=== PATIENT | male | born 1965 | race African-American/Black ===

== ENCOUNTER 2016-11-26 15:03 | Emergency (ER) | payer SELFPAY ==
[~2016-11-26] VITALS: Ht 180.3 cm; Wt 82.6 kg
[~2016-11-26 15:03] MED LIST: CYCLOBENZAPRINE10 MG ORAL; NAPROSYN500 M1 ORAL; NKM; NORCO 10/3251 EA ORAL; NORCO 5-325 TA1 EAC1 ORAL; NORCO 5-325 TA1 EACH ORAL; PEPCID40 MG PO; PRILOSEC20 MG ORAL; PROTONIX40 MG ORAL; ZOFRAN4 MG ORAL; ZOLOFT25 MG ORAL
[2016-11-26 15:18] VITALS: BP 139/82
[2016-11-26] MEDS ORDERED: DuoNeb 0.5-3(2.5)mg/3ml neb HHN ONE (15:45)
[2016-11-26] MEDS ORDERED: Famotidine 20 MG/ 2ML VIAL IVP ONE (15:45)
--- NOTE | 2016-11-26 16:22 | Emergency Room Report ---
History of Present Illness General Chief Complaint: Abdominal Pain Source: Patient Present Illness HPI Patient is a 51-year-old male who presented after increased epigastric burning sensation. Patient gradual onset of symptoms. Patient states he's had previous similar symptoms in the past. The patient denies any hematemesis or bloody stools. Patient denied prior abdominal surgery. Patient stated the pain had been present for several days.The patient is reportedly a smoker.Patient denies any alcohol or NSAID use.The patient states he had prior history of colitis. Allergies: Coded Allergies: No Known Allergies (Unverified , 11/28/13) Patient History Past Medical History: see triage record Reviewed Nursing Documentation: PMH: Agreed, PSxH: Agreed Nursing Documentation-PMH Hx Cancer: No Hx Gastrointestinal Problems: Yes Hx Neurological Problems: Yes - Back surgery 1995, Sciatica Review of Systems All Other Systems: negative except mentioned in HPI Physical Exam Vital Signs Date Time Temp Pulse Resp B/P Pulse Ox O2 Delivery O2 Flow Rate FiO2 11/26/16 15:09 97.9 132 16 139/82 97 Room Air Sp02 EP Interpretation: reviewed, normal General Appearance: normal inspection, well appearing, no apparent distress, alert, GCS 15 Head: atraumatic ENT: normal ENT inspection, hearing grossly normal, normal voice Neck: normal inspection, full range of motion, supple, no bony tend Respiratory: normal inspection, normal breath sounds, no respiratory distress, no retraction, wheezing Cardiovascular #1: regular rate, rhythm, no edema Gastrointestinal: normal inspection, normal bowel sounds, non tender, soft, no guarding, no hernia Genitourinary: no CVA tenderness Musculoskeletal: normal inspection, back normal, normal range of motion Neurologic: normal inspection, alert, oriented x3, responsive, 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 Differential diagnoses included ischemic bowel, appendicitis, perforated viscus, abdominal aortic aneurysm, inferior myocardial infarction, viral gastroenteritis Because of complexity of patient's case laboratory testing and imaging studies were ordered.The patient's prior records were reviewed the patient was noted to have prior history of a duodenal ulcer as well as a hiatal hernia. The patient was given oral pain medication and acid blockers.Patient is advised to seek primary care physician. He is advised to follow up for recheck in the next few days with the [facility]. Patient is advised to return if any worsening condition or if any changes in status that are concerning. Labs Test 11/26/16 15:50 11/26/16 16:47 White Blood Count 8.6 K/UL (4.8-10.8) Red Blood Count 4.53 M/UL (4.70-6.10) Hemoglobin 14.2 G/DL (14.2-18.0) Hematocrit 42.3 % (42.0-52.0) Mean Corpuscular Volume 93 FL (80-99) Mean Corpuscular Hemoglobin 31.3 PG (27.0-31.0) Mean Corpuscular Hemoglobin Concent 33.5 G/DL (32.0-36.0) Red Cell Distribution Width 11.9 % (11.6-14.8) Platelet Count 345 K/UL (150-450) Mean Platelet Volume 6.0 FL (6.5-10.1) Neutrophils (%) (Auto) 48.3 % (45.0-75.0) Lymphocytes (%) (Auto) 43.4 % (20.0-45.0) Monocytes (%) (Auto) 4.5 % (1.0-10.0) Eosinophils (%) (Auto) 2.1 % (0.0-3.0) Basophils (%) (Auto) 1.7 % (0.0-2.0) Sodium Level 138 mEQ/L (135-145) Potassium Level 4.0 mEQ/L (3.4-4.9) Chloride Level 95 mEQ/L (98-107) Carbon Dioxide Level 25 mEQ/L (20-30) Anion Gap 18 (5-15) Blood Urea Nitrogen 18 mg/dL (7-23) Creatinine 1.4 mg/dL (0.7-1.2) Estimat Glomerular Filtration Rate > 60 mL/min (>60) Glucose Level 167 mg/dL (74-106) Calcium Level 9.6 mg/dL (8.6-10.2) Total Bilirubin 0.3 mg/dL (0.0-1.2) Aspartate Amino Transf (AST/SGOT) 20 U/L (5-40) Alanine Aminotransferase (ALT/SGPT) 22 U/L (3-41) Alkaline Phosphatase 91 U/L (40-129) Troponin I < 0.30 ng/mL (<=0.30) Total Protein 7.6 g/dL (6.6-8.7) Albumin 4.5 g/dL (3.5-5.2) Globulin 3.1 g/dL Albumin/Globulin Ratio 1.4 (1.0-2.7) Lipase 20 U/L (< 60) Urine Color Pale yellow Urine Appearance Clear Urine pH 6 (4.5-8.0) Urine Specific Simms 1.015 (1.005-1.035) Urine Protein Negative (NEGATIVE) Urine Glucose (UA) Negative (NEGATIVE) Urine Ketones Negative (NEGATIVE) Urine Occult Blood Negative (NEGATIVE) Urine Nitrite Negative (NEGATIVE) Urine Bilirubin Negative (NEGATIVE) Urine Urobilinogen Normal MG/DL (0.0-1.0) Urine Leukocyte Esterase Negative (NEGATIVE) EKG Diagnostic Results Rate: normal - 98 Rhythm: NSR ST Segments: no acute changes ASA given to the pt in ED: No Rhythm Strip Diag. Results EP Interpretation: yes Rhythm: NSR - 93, no PVC's, no ectopy Chest X-Ray Diagnostic Results EP Interpretation: Yes Findings: no consolidation, no effusion, no pneumothorax, no acute cardiopulmonary disease Number of Views: 1 Last Vital Signs Date Time Temp Pulse Resp B/P Pulse Ox O2 Delivery O2 Flow Rate FiO2 11/26/16 16:13 90 14 100 Room Air 11/26/16 15:18 97.9 139/82 Status: improved Disposition: HOME, SELF-CARE Condition: Stable Scripts Omeprazole Magnesium (PRILOSEC OTC) 20 Mg Tablet.dr 20 MG ORAL DAILY, #30 TAB Prov: Chris Croft 11/26/16 Hydrocodone Bit/Acetaminophen 5-325* (NORCO 5-325*) 1 Each Tablet 1 TAB ORAL Q6H Y for For Pain, #10 TAB 0 Refills Prov: Chris Croft 11/26/16 Chris Croft Nov 26, 2016 16:21
[2016-11-26] MEDS ORDERED: NORCO 5-325 TA1 EACH ORAL (16:39)
[2016-11-26] MEDS ORDERED: PRILOSEC OTC20 MG ORAL (16:39)
[2016-11-26 16:41] LABS: BASOPHILS % (AUTO) 1.7 % (0.0-2.0); EOSINOPHILS % (AUTO) 2.1 % (0.0-3.0); LYMPHOCYTES % (AUTO) 43.4 % (20.0-45.0); MEAN CORPUSCULAR HEMOGLOBIN 31.3 PG (27.0-31.0); MEAN CORPUSCULAR HGB CONC 33.5 G/DL (32.0-36.0); MEAN CORPUSCULAR VOLUME 93 FL (80-99); MONOCYTES % (AUTO) 4.5 % (1.0-10.0); NEUTROPHILS % (AUTO) 48.3 % (45.0-75.0); PLATELET COUNT 345 K/UL (150-450); RED BLOOD COUNT 4.53 M/UL (4.70-6.10); RED CELL DISTRIBUTION WIDTH 11.9 % (11.6-14.8); TROPONIN I < 0.30 ng/mL (<=0.30); WHITE BLOOD COUNT 8.6 K/UL (4.8-10.8)
[2016-11-26 16:45] LABS: ALANINE AMINOTRANSFERASE 22 U/L (3-41); ALBUMIN/GLOBULIN RATIO 1.4 (1.0-2.7); ANION GAP 18 (5-15); ASPARTATE AMINO TRANSFERASE 20 U/L (5-40); CALCIUM 9.6 mg/dL (8.6-10.2); CARBON DIOXIDE 25 mEQ/L (20-30); CHLORIDE 95 mEQ/L (98-107); CREATININE 1.4 mg/dL (0.7-1.2); GLOMERULAR FILTRATION RATE > 60 mL/min (>60); HEMOLYSIS 7; LIPASE 20 U/L (< 60); SODIUM 138 mEQ/L (135-145); TOTAL PROTEIN 7.6 g/dL (6.6-8.7)
[2016-11-26 17:00] LABS: APPEARANCE,URINE CLEAR; KETONES,URINE NEGATIVE (NEGATIVE); LEUKOCYTE ESTERASE ,URINE NEGATIVE (NEGATIVE); NITRITE,URINE NEGATIVE (NEGATIVE); PH,URINE 6 (4.5-8.0); PROTEIN,URINE NEGATIVE (NEGATIVE); UROBILINOGEN,URINE NORMAL MG/DL (0.0-1.0)
[2016-11-26 17:02] VITALS: BP 141/80
[2016-11-26 17:20] VITALS: BP 141/80
--- NOTE | 2016-11-28 09:34 | Diagnostic Imaging Report ---
Indication: Shortness of breath Technique: XRAY CHEST 1 V Comparison: 02/26/08 Findings: Cardiomediastinal silhouette is within normal limits. Mild linear lung base atelectasis is noted. There is no consolidation or pleural effusion. Osseous structures demonstrate no acute abnormality. Impression: Mild linear lung base atelectasis. Clinical correlation/followup recommended.
--- NOTE | 2016-12-02 16:38 | Cardiology Report ---
APPROVED REPORT EKG Measurement Heart [id number] Normal sinus rhythm Normal ECG
== END 2016-11-26 17:21 | disposition home or self-care (01) ==
LOC: EMR 16:23
DX: K27.9 Peptic ulcer, site unspecified, unspecified as acute or chronic, without hemorrhage or perforation (principal); F17.200 Nicotine dependence, unspecified, uncomplicated
CPT/HCPCS: 36415; 71010; 80053; 81003; 83690; 84484; 85025; 93005; 94640; 94664; 96360; 96374; 96375; 99284; J2405; J7040; S0028; J7620

== ENCOUNTER 2017-01-14 11:49 | Emergency (ER) | payer MEDICAID ==
[~2017-01-14] VITALS: Ht 180.3 cm; Wt 79.4 kg
[~2017-01-14 11:49] MED LIST changes: +PRILOSEC OTC20 MG ORAL
[2017-01-14] MEDS ORDERED: Morphine Sulfate 4mg/ml Inj IVP ONE (12:15)
--- NOTE | 2017-01-14 12:16 | Emergency Room Report ---
History of Present Illness General Chief Complaint: Abdominal Pain Source: Patient Present Illness HPI Patient just with complaints of epigastric pain sharp and burning in nature Denies any radiation to the right or left upper quadrant denies any back pain denies any lower abdominal pain Patient is somewhat difficult to obtain history Appears agitated Reports that it "just hurts" There was no other medication prior to presentation Patient did not provide any further history however reviewing medical records patient was here approximately 6 weeks ago with very similar presentation With fairly extensive workup and imaging Denies any diarrhea denies any fevers or chills denies any trauma Allergies: Coded Allergies: No Known Allergies (Unverified , 11/28/13) Patient History Past Medical History: see triage record Pertinent Family History: none Reviewed Nursing Documentation: PMH: Agreed, PSxH: Agreed Nursing Documentation-PMH Past Medical History: No History, Except For Hx Cancer: No Hx Gastrointestinal Problems: Yes Hx Neurological Problems: Yes - Back surgery 1995, Sciatica Review of Systems All Other Systems: negative except mentioned in HPI Physical Exam Vital Signs Date Time Temp Pulse Resp B/P Pulse Ox O2 Delivery O2 Flow Rate FiO2 01/14/17 12:00 97.3 92 22 136/100 98 Room Air Sp02 EP Interpretation: reviewed, normal General Appearance: mild distress - Appears in acute pain Head: normocephalic, atraumatic Eyes: bilateral eye EOMI, bilateral eye PERRL ENT: hearing grossly normal, normal pharynx, TMs + canals normal, uvula midline Neck: full range of motion, supple, no meningismus, no bony tend Respiratory: lungs clear, normal breath sounds, no rhonchi, no respiratory distress, no retraction, no accessory muscle use Cardiovascular #1: normal peripheral pulses, regular rate, rhythm, no edema, no gallop, no JVD, no murmur Gastrointestinal: normal bowel sounds, non tender - However subjectively pointing to the epigastric region, soft, no mass, no organomegaly, non-distended , no guarding, no hernia, no pulsatile mass, no rebound Musculoskeletal: normal inspection Neurologic: oriented x3, responsive, caser shoe parts III-XII nml as tested, motor strength/ tone normal, sensory intact Psychiatric: mood/affect normal Skin: normal color, no rash, warm/dry, palpation normal Lymphatic: normal inspection, no adenopathy Medical Decision Making Diagnostic Impression: Primary Impression: Abdominal pain ER Course With the history exam and presentation, multiple differentials considered, including but not limited to appendicitis, gastritis, cholecystitis, diverticulitis Patient has had previous imaging and evaluation Therefore repeat imaging was not performed there is evidence on previous evaluation of duodenal irritation, Patient resting comfortably blood work was baseline levels at this time Patient was given pain medication At this time on disposition as the patient was given prescriptions for antacid he reports that he has no money to get the medications Patient is also found positive on multiple drug screen results. I did refer him to the [facility], along with low cost clinics and encouraged him to followup closely Labs Test 01/14/17 12:30 01/14/17 14:00 White Blood Count 8.3 K/UL (4.8-10.8) Red Blood Count 4.61 M/UL (4.70-6.10) Hemoglobin 14.3 G/DL (14.2-18.0) Hematocrit 43.6 % (42.0-52.0) Mean Corpuscular Volume 94 FL (80-99) Mean Corpuscular Hemoglobin 31.0 PG (27.0-31.0) Mean Corpuscular Hemoglobin Concent 32.8 G/DL (32.0-36.0) Red Cell Distribution Width 12.2 % (11.6-14.8) Platelet Count 448 K/UL (150-450) Mean Platelet Volume 5.5 FL (6.5-10.1) Neutrophils (%) (Auto) 62.6 % (45.0-75.0) Lymphocytes (%) (Auto) 31.0 % (20.0-45.0) Monocytes (%) (Auto) 3.8 % (1.0-10.0) Eosinophils (%) (Auto) 1.4 % (0.0-3.0) Basophils (%) (Auto) 1.2 % (0.0-2.0) Sodium Level 140 mEQ/L (135-145) Potassium Level 4.1 mEQ/L (3.4-4.9) Chloride Level 97 mEQ/L (98-107) Carbon Dioxide Level 30 mEQ/L (20-30) Anion Gap 13 (5-15) Blood Urea Nitrogen 9 mg/dL (7-23) Creatinine 1.1 mg/dL (0.7-1.2) Estimat Glomerular Filtration Rate > 60 mL/min (>60) Glucose Level 111 mg/dL (74-106) Calcium Level 10.2 mg/dL (8.6-10.2) Total Bilirubin 0.2 mg/dL (0.0-1.2) Aspartate Amino Transf (AST/SGOT) 17 U/L (5-40) Alanine Aminotransferase (ALT/SGPT) 20 U/L (3-41) Alkaline Phosphatase 96 U/L (40-129) Total Protein 7.5 g/dL (6.6-8.7) Albumin 4.3 g/dL (3.5-5.2) Globulin 3.2 g/dL Albumin/Globulin Ratio 1.3 (1.0-2.7) Lipase 16 U/L (< 60) Urine Opiates Screen Positive (NEGATIVE) Urine Barbiturates Screen Negative (NEGATIVE) Phencyclidine (PCP) Screen Negative (NEGATIVE) Urine Amphetamines Screen Positive (NEGATIVE) Urine Benzodiazepines Screen Negative (NEGATIVE) Urine Cocaine Screen Negative (NEGATIVE) Urine Marijuana (THC) Screen Positive (NEGATIVE) Last Vital Signs Date Time Temp Pulse Resp B/P Pulse Ox O2 Delivery O2 Flow Rate FiO2 01/14/17 12:00 97.3 92 22 136/100 98 Room Air Status: improved Disposition: HOME, SELF-CARE Condition: Improved Scripts Ondansetron Odt* (ZOFRAN ODT*) 4 Mg Tab.rapdis 4 MG ORAL Q6H Y for Nausea & Vomiting, #15 TAB 0 Refills Prov: ELI ALMANZAR D.O. 01/14/17 Famotidine (PEPCID) 40 Mg Tablet 40 MG PO DAILY, #14 TAB 0 Refills Prov: ELI ALMANZAR D.O. 01/14/17 Additional Instructions: Patient is provided with the discharge instructions notified to follow up with primary doctor in the next 2-3 days otherwise return to the er with any worsening symptoms. Please note that this report is being documented using [employer] technology. This can lead to erroneous entry secondary to incorrect interpretation by the dictating instrument. ELI ALMANZAR D.O. Jan 14, 2017 12:16
[2017-01-14 13:08] VITALS: BP 137/90
[2017-01-14 13:21] LABS: BASOPHILS % (AUTO) 1.2 % (0.0-2.0); EOSINOPHILS % (AUTO) 1.4 % (0.0-3.0); MEAN CORPUSCULAR HGB CONC 32.8 G/DL (32.0-36.0); MEAN CORPUSCULAR VOLUME 94 FL (80-99); MEAN PLATELET VOLUME 5.5 FL (6.5-10.1); MONOCYTES % (AUTO) 3.8 % (1.0-10.0); NEUTROPHILS % (AUTO) 62.6 % (45.0-75.0); PLATELET COUNT 448 K/UL (150-450); RED BLOOD COUNT 4.61 M/UL (4.70-6.10); RED CELL DISTRIBUTION WIDTH 12.2 % (11.6-14.8); WHITE BLOOD COUNT 8.3 K/UL (4.8-10.8)
[2017-01-14 13:41] LABS: ALANINE AMINOTRANSFERASE 20 U/L (3-41); ALBUMIN/GLOBULIN RATIO 1.3 (1.0-2.7); ANION GAP 13 (5-15); ASPARTATE AMINO TRANSFERASE 17 U/L (5-40); CALCIUM 10.2 mg/dL (8.6-10.2); CARBON DIOXIDE 30 mEQ/L (20-30); CHLORIDE 97 mEQ/L (98-107); CREATININE 1.1 mg/dL (0.7-1.2); GLOMERULAR FILTRATION RATE > 60 mL/min (>60); HEMOLYSIS 6; LIPASE 16 U/L (< 60); POTASSIUM 4.1 mEQ/L (3.4-4.9); SODIUM 140 mEQ/L (135-145); TOTAL PROTEIN 7.5 g/dL (6.6-8.7)
[2017-01-14] MEDS ORDERED: PEPCID40 MG PO (13:47)
[2017-01-14] MEDS ORDERED: ZOFRAN ODT4 MG ORAL (13:47)
[2017-01-14 14:17] VITALS: BP 147/82
[2017-01-14 14:18] VITALS: BP 147/82
== END 2017-01-14 14:20 | disposition home or self-care (01) ==
LOC: EMR 12:38
DX: R10.9 Unspecified abdominal pain (principal); Z87.19 Personal history of other diseases of the digestive system
CPT/HCPCS: 36415; 80053; 80300; 83690; 85025; 96374; 96375; 99284; J2270; J2405

== ENCOUNTER 2017-03-27 15:36 | Emergency (ER) | payer MEDICAID ==
[~2017-03-27] VITALS: Ht 180.3 cm; Wt 69.9 kg
[~2017-03-27 15:36] MED LIST changes: +ZOFRAN ODT4 MG ORAL
--- NOTE | 2017-03-27 15:54 | Emergency Room Report ---
History of Present Illness General Chief Complaint: Chest Pain Source: Patient Present Illness HPI 51YOM walk-in with 1 week of SOB and dry cough. Associated with chest pressure. + smoker, MJ. Denies fever/chills, abd pain, urinary complaints, headache, Denies cocaine use Denies history of DM, HTN, HLD, CAD, sudden family Allergies: Coded Allergies: No Known Allergies (Unverified , 11/28/13) Patient History Past Medical History: none Past Surgical History: none Pertinent Family History: none Social History: Reports: drug use, smoking Immunizations: UTD Reviewed Nursing Documentation: PMH: Agreed, PSxH: Agreed Nursing Documentation-PMH Hx Cancer: No Hx Gastrointestinal Problems: Yes Hx Neurological Problems: Yes - Back surgery 1995, Sciatica Review of Systems All Other Systems: negative except mentioned in HPI Physical Exam Vital Signs Date Time Temp Pulse Resp B/P Pulse Ox O2 Delivery O2 Flow Rate FiO2 03/27/17 15:39 97.5 85 14 148/88 99 Room Air Sp02 EP Interpretation: reviewed, normal General Appearance: normal inspection, well appearing, no apparent distress, alert, GCS 15, non-toxic, other - Observed resting comfortably in stretcher; when I enter room, starts hyperventilating Head: normocephalic, atraumatic Eyes: bilateral eye EOMI, bilateral eye PERRL ENT: normal ENT inspection, hearing grossly normal, normal voice Neck: normal inspection, full range of motion, supple, no bony tend Respiratory: normal inspection, lungs clear, normal breath sounds, no respiratory distress, no retraction, no accessory muscle use, no wheezing, speaking full sentences Cardiovascular #1: regular rate, rhythm, no edema Gastrointestinal: normal inspection, normal bowel sounds, non tender, soft, no guarding, no hernia Genitourinary: no CVA tenderness Musculoskeletal: normal inspection, back normal, normal range of motion, Yara' s Sign negative Neurologic: normal inspection, alert, oriented x3, responsive, heater furnace III-XII nml as tested, motor strength/tone normal, speech normal Psychiatric: normal inspection, judgement/insight normal, mood/affect normal Skin: normal inspection, normal color, no rash Medical Decision Making Diagnostic Impression: Primary Impression: Dyspnea Qualified Codes: R06.00 - Dyspnea, unspecified ER Course Dyspnea for 1 week - VSS. Afebrile. No hypoxia. - has been here multiple times recently with negative lab/imaging workup. Utox positive for multiple illicit substances. No cocaine use. - ECG here NSR, no ischemia. - 1albuterol given with improvement in subjective dyspnea - Low suspicion for ACS given duration of symptoms, no CAD risk factors, no cocaine use, observed malingering - Low suspicion for PE given no hypoxia/tachycardia/tachypnea, no leg pain/ swelling. PERC negative essentially except for age >50. DC home with Rx ventolin Advised to STOP smoking Close PMD followup in 2-3 days EKG Diagnostic Results Rate: normal Rhythm: NSR ST Segments: no acute changes ASA given to the pt in ED: No Last Vital Signs Date Time Temp Pulse Resp B/P Pulse Ox O2 Delivery O2 Flow Rate FiO2 03/27/17 15:50 85 14 Room Air 03/27/17 15:39 97.5 148/88 99 Status: improved Disposition: HOME, SELF-CARE Scripts Albuterol Sulfate (VENTOLIN HFA) 18 Gm Hfa.aer.ad 1 PUFF INH EVERY 6 HOURS for SOB, chest tightness for 7 Days, #18 GM 0 Refills Prov: ANNE ESPOSITO M.D. 03/27/17 ANNE ESPOSITO M.D. Mar 27, 2017 15:54
[2017-03-27 16:11] VITALS: BP 140/88
[2017-03-27] MEDS ORDERED: Albuterol ud Inhalation HHN ONE (16:15)
[2017-03-27] MEDS ORDERED: VENTOLIN HFA18 GM INH (16:34)
[2017-03-27 16:55] VITALS: BP 134/75
== END 2017-03-27 16:45 | disposition home or self-care (01) ==
LOC: EMR 16:30
DX: R06.00 Dyspnea, unspecified (principal); F17.200 Nicotine dependence, unspecified, uncomplicated
CPT/HCPCS: 93005; 94640; 94664; 99283

== ENCOUNTER 2018-10-18 11:34 | Emergency (ER) | payer MEDICAID ==
[~2018-10-18] VITALS: Ht 180.3 cm; Wt 86.2 kg
[~2018-10-18 11:34] MED LIST changes: +VENTOLIN HFA18 GM INH
--- NOTE | 2018-10-18 11:45 | NUR ---
ED Nurse Note: Patient came in to ED c/o chronic lower back pain, patient reports 8/10. The pain started to get worse a week ago and it is getting worse. patient is ambulatory, came from home, a/o x4.
[2018-10-18 11:48] VITALS: BP 152/94
[2018-10-18] MEDS ORDERED: LIDOCAINE700 M1 TP (12:10)
[2018-10-18] MEDS ORDERED: ROBAXIN500 MG PO (12:10)
--- NOTE | 2018-10-18 12:11 | Emergency Room Report ---
History of Present Illness General Chief Complaint: Back Pain-No Injury Source: Patient, Medical Record Present Illness HPI 52-year-old male presents the ER with low back pain for the past week. Patient reports history of back pain problems in the past. Reports that "when the weather gets cold" his back pain starts to act up again. Reports "has not happened for a while". Reports that he had back surgery in 1995 to remove a bulging disc. Reports he normally takes Ray for pain when he has these acute exacerbations, requesting refill of Ray medication at this time. Denies bowel or bladder incontinence. Denies pain rating down his legs. Denies fever , chest pain, shortness of breath, abdominal pain. Reports not taking any medications in the past week to help alleviate symptoms. Denies other aggravating or relieving factors. Denies acute injury or trauma. Allergies: Coded Allergies: No Known Allergies (Unverified , 11/28/13) Patient History Past Medical History: see triage record Reviewed Nursing Documentation: PMH: Agreed; PSxH: Agreed Nursing Documentation-PMH Hx Cancer: No Hx Gastrointestinal Problems: Yes Hx Neurological Problems: Yes - Back surgery 1995, Sciatica Review of Systems All Other Systems: negative except mentioned in HPI Physical Exam Vital Signs Date Time Temp Pulse Resp B/P (MAP) Pulse Ox O2 Delivery O2 Flow Rate FiO2 10/18/18 11:38 97.7 97 22 152/94 96 Room Air Sp02 EP Interpretation: reviewed, normal General Appearance: well appearing, no apparent distress, alert, GCS 15, non- toxic Head: normocephalic, atraumatic Eyes: bilateral eye normal inspection, bilateral eye PERRL ENT: hearing grossly normal, normal pharynx, no angioedema, normal voice, uvula midline, moist mucus membranes Neck: full range of motion Respiratory: lungs clear, normal breath sounds, no rhonchi, no respiratory distress, no accessory muscle use, no wheezing, speaking full sentences Cardiovascular #1: regular rate, rhythm, no edema Gastrointestinal: non tender, soft, no mass, non-distended, no guarding, no rebound Musculoskeletal: back normal, digits/nails normal, gait/station normal, normal range of motion, non-tender Neurologic: alert, oriented x3, responsive, motor strength/tone normal, sensory intact Psychiatric: mood/affect normal Medical Decision Making PA Attestation Dr. Gold is my supervising Physician whom patient management has been discussed with. Diagnostic Impression: Primary Impression: Back pain ER Course Pt presents to ED c/o back pain. DDX considered but are not limited to sprain, strain, cauda equina, epidural abscess, AAA, spinal cord compression, acute exacerbation of chronic pain. Low suspicion for cauda equina, no bowel or bladder incontinence or retention. No fever, nontoxic appearing, no radiation of pain, low suspicion for epidural mass. No abdominal pain, no blood pressure elevation, nontoxic appearing, low suspicion for AAA. VITAL SIGNS are WNL, patient is afebrile Ordered pain medication, imaging, labs. ER COURSE: Pain medication provided. Provide patient with single dose of Ray while in the ER, informed patient would not provide him with a refill of his Ray medication. 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 Patient reports that "I would have come here if I knew I was going to get the refill like it did last time". Reports he does not currently have a primary care provider so he came to the ER, states has not established care with a new primary care provider. Denies acute injury or trauma. Does not require imaging at this time, low suspicion for fracture. Followup with pain management and/or PT. Request referral from PCP. Followup with PCP for further MRI and/or CT imaging as needed. ER precautions given. Discussed patient care with Dr. Gold who agrees with treatment plan. DISCHARGE: -Rx provided for Lidocaine patch -Rx provided for Robaxin. SE may cause drowsiness, do not take prior to drinking , driving, or operating [place] machinery. At this time pt. is stable for d/c to home. At this time patient is resting comfortably, in no acute distress, nontoxic appearing, smiling and talking without difficulty. Will provide printed patient care instructions, and any necessary prescriptions. Patient instructed to follow with primary care provider for further treatment and referral as needed. Care plan and follow up instructions have been discussed with the patient prior to discharge. Patient reports understanding and agreement to treatment plan. Patient questions asked and answered. ER precautions given, patient instructed to return to ER immediately for any new or worsening of symptoms. - Please note that this Emergency Department Report was dictated using [employer] technology software, occasionally this can lead to erroneous entry secondary to interpretation by the dictation equipment. Last Vital Signs Date Time Temp Pulse Resp B/P (MAP) Pulse Ox O2 Delivery O2 Flow Rate FiO2 10/18/18 11:48 97.7 97 22 152/94 96 Room Air Disposition: HOME, SELF-CARE Condition: Stable Scripts Methocarbamol* (ROBAXIN*) 500 Mg Tablet 500 MG PO TID, #21 TAB 0 Refills Prov: Gilson Wilson 10/18/18 Lidocaine (Lidocaine) 1 Each Adh..patch 5 % TP DAILY for 7 Days, #7 PATCH Prov: Gilson Wilson 10/18/18 Patient Instructions: Back Pain, Adult Additional Instructions: Patient instructed to follow up with primary care provider 3-5 and discuss further referral and imaging at that time. Patient instructed on rest, ice and heat. Do not take muscle relaxant prior to drinking, driving, or operating heavy machinery. Take medications as directed. Patient questions asked and answered. ER precautions given, patient instructed to return to ER immediately for any new or worsening of symptoms. [facility] [address] [address] [facility], [address] [email or web address] Gilson Wilson Oct 18, 2018 12:10
[2018-10-18] MEDS ORDERED: HYDROcodone/Acetamin 5/325 tab ORAL ONE (12:30)
[2018-10-18 12:45] VITALS: BP 152/94
[2018-12-11] MEDS ORDERED: ELIQUIS5 MG PO (10:02)
[2019-02-07] MEDS ORDERED: ELIQUIS5 MG PO (21:26)
[2019-02-16] MEDS ORDERED: ELIQUIS5 MG PO (13:03)
== END 2018-10-18 12:46 | disposition home or self-care (01) ==
LOC: EMR 12:10
DX: M54.5 Low back pain (principal)
CPT/HCPCS: 99283

== ENCOUNTER 2019-02-07 21:26 | Emergency (ER) | payer MEDICAID ==
[~2019-02-07] VITALS: Ht 180.3 cm; Wt 87.5 kg
[~2019-02-07 21:26] MED LIST changes: +ELIQUIS5 MG PO; +LIDOCAINE700 M1 TP; +ROBAXIN500 MG PO
[2019-02-07] MEDS ORDERED: Isovue-300 100ml vial INJ PRN (21:30)
[2019-02-07] MEDS ORDERED: Acetaminophen 500mg (ES) tab ORAL ONE (21:30)
--- NOTE | 2019-02-07 21:35 | NUR ---
ED Nurse Note: RECIEVED PT BIBA FROM HOME WITH C/O SEVERE, SUDDEN RIGHT FLANK PAIN AT 9/10, NO EMESIS, MILD NAUSEA, NO DIARRHEA, FEVERS, OR ANY OTHER COMPLAINTS OR DISCOMFORTS, PT IMMEDIATELY ASSISTED TO GOWNING, URINE SAMPLE COLLECTED AND PT PLACED ON CARDIAC MONITORING, WILL RESUME CARE ORDERED AND CLOSELY MONITOR.
--- NOTE | 2019-02-07 21:54 | Emergency Room Report ---
History of Present Illness General Chief Complaint: Back Pain-No Injury Source: Patient, EMS Present Illness HPI Patient presents with 45 minutes of right-sided flank pain. He was watching TV and was listening to music when this started. He's never had pain like this before. He rates the pain 6/10. He says it doesn't radiate. He feels something else on the left lower part of his abdomen. Denies any nausea, vomiting, diarrhea or changes in his stools. He denies dysuria or hematuria. There's been no fevers or chills. He's taken no medication for this pain. He denies any history of renal stones he knows of. The pain is constant. The patient is on Eliquis for a DVT in his left leg. He states that recently he 's had increased swelling in that leg. There's some chronic pain there but it' s not significant at this time. He denies any other bleeding problems recently. No hemoptysis or chest pain. The patient smokes cigarettes and THC. He denies alcohol. Allergies: Coded Allergies: No Known Allergies (Unverified , 11/28/13) Patient History Past Medical History: see triage record Social History: Reports: smoking, drug use Social History Narrative at home Reviewed Nursing Documentation: PMH: Agreed; PSxH: Agreed Nursing Documentation-PMH Past Medical History: No History, Except For Hx Cancer: No Hx Gastrointestinal Problems: No Hx Neurological Problems: No Review of Systems All Other Systems: negative except mentioned in HPI Physical Exam Vital Signs Date Time Temp Pulse Resp B/P (MAP) Pulse Ox O2 Delivery O2 Flow Rate FiO2 02/07/19 21:21 98.1 100 18 96 Room Air Sp02 EP Interpretation: reviewed, normal General Appearance: well appearing, no apparent distress, GCS 15 Head: normocephalic Eyes: bilateral eye PERRL, bilateral eye Scleral Injection ENT: moist mucus membranes Neck: supple Respiratory: lungs clear, normal breath sounds Cardiovascular #1: regular rate, rhythm, edema - Left 1+ and right trac Cardiovascular #2: 2+ radial (R) Gastrointestinal: normal inspection, normal bowel sounds, no mass, non- distended, no guarding, no rebound, tenderness - Reported tenderness right flank Genitourinary: no CVA tenderness Musculoskeletal: back normal, gait/station normal, normal range of motion, no calf tenderness, Yara's Sign negative Neurologic: alert, oriented x3, grossly normal Psychiatric: mood/affect normal Skin: normal inspection, warm/dry Medical Decision Making Diagnostic Impression: Primary Impression: Flank pain Additional Impression: UTI (urinary tract infection) Qualified Codes: N30.00 - Acute cystitis without hematuria ER Course Patient presents with right-sided flank pain on Eliquis. Differential is fairly broad including renal stone, pyelonephritis, bleeding disorder, constipation, pancreatitis amongst others. The patient will be evaluated with EKG, chest x-ray, CT the abdomen with oral and IV contrast, noninvasive vascular study of his left leg and labs. The patient will be treated with gentle IV hydration as he states he feels dehydrated. Also he given a dose of Tylenol. EKG no injury. Chest x-ray unremarkable. Labs unremarkable except for pyuria. Noninvasive vascular study left leg with chronic DVT. This is unchanged from a month ago. CT abdomen without surgical findings. Rocephin given. Patient's pain is decreased. He is sleeping. The etiology of the pain is unclear. Discussed results with patient. Patient stable for outpatient observation and treatment. Laboratory Tests Test 02/07/19 21:30 02/07/19 21:40 Urine Color Yellow Urine Appearance Slightly cloudy Urine pH 5 (4.5-8.0) Urine Specific [place] 1.025 (1.005-1.035) Urine Protein 1+ (NEGATIVE) H Urine Glucose (UA) Negative (NEGATIVE) Urine Ketones 1+ (NEGATIVE) H Urine Blood 1+ (NEGATIVE) H Urine Nitrite Negative (NEGATIVE) Urine Bilirubin 1+ (NEGATIVE) H Urine Ictotest Negative (NEGATIVE) Urine Urobilinogen 1 MG/DL (0.0-1.0) H Urine Leukocyte Esterase 2+ (NEGATIVE) H Urine RBC 2-4 /HPF (0 - 0) H Urine WBC 5-10 /HPF (0 - 0) H Urine Squamous Epithelial Cells None /LPF (NONE/OCC) Urine Bacteria Many /HPF (NONE) H White Blood Count 8.2 K/UL (4.8-10.8) Red Blood Count 4.17 M/UL (4.70-6.10) L Hemoglobin 12.8 G/DL (14.2-18.0) L Hematocrit 37.0 % (42.0-52.0) L Mean Corpuscular Volume 89 FL (80-99) Mean Corpuscular Hemoglobin 30.6 PG (27.0-31.0) Mean Corpuscular Hemoglobin Concent 34.5 G/DL (32.0-36.0) Red Cell Distribution Width 12.2 % (11.6-14.8) Platelet Count 231 K/UL (150-450) Mean Platelet Volume 5.8 FL (6.5-10.1) L Neutrophils (%) (Auto) 47.3 % (45.0-75.0) Lymphocytes (%) (Auto) 43.7 % (20.0-45.0) Monocytes (%) (Auto) 4.4 % (1.0-10.0) Eosinophils (%) (Auto) 3.1 % (0.0-3.0) H Basophils (%) (Auto) 1.5 % (0.0-2.0) Prothrombin Time 10.1 SEC (9.30-11.50) Prothrombin Time INR 1.0 (0.9-1.1) PTT 25 SEC (23-33) Sodium Level 140 MMOL/L (136-145) Potassium Level 4.2 MMOL/L (3.5-5.1) Chloride Level 105 MMOL/L (98-107) Carbon Dioxide Level 27 MMOL/L (21-32) Anion Gap 8 mmol/L (5-15) Blood Urea Nitrogen 22 mg/dL (7-18) H Creatinine 1.5 MG/DL (0.55-1.30) H Estimate Glomerular Filtration Rate 59.1 mL/min (>60) Glucose Level 112 MG/DL (74-106) H Calcium Level 9.0 MG/DL (8.5-10.1) Total Bilirubin 0.1 MG/DL (0.2-1.0) L Aspartate Amino Transferase (AST) 32 U/L (15-37) Alanine Aminotransferase (ALT) 42 U/L (12-78) Alkaline Phosphatase 99 U/L (46-116) Total Creatine Kinase 237 U/L (26-308) Troponin I 0.004 ng/mL (0.000-0.056) Total Protein 7.5 G/DL (6.4-8.2) Albumin 3.8 G/DL (3.4-5.0) Globulin 3.7 g/dL Albumin/Globulin Ratio 1.0 (1.0-2.7) Lipase 113 U/L (73-393) EKG Diagnostic Results Rate: normal Rhythm: NSR ST Segments: no acute changes Rhythm Strip Diag. Results EP Interpretation: yes Rhythm: NSR, no PVC's, no ectopy Chest X-Ray Diagnostic Results Chest X-Ray Diagnostic Results : Chest X-Ray Ordered: Yes # of Views/Limited/Complete: 1 View Indication: Other EP Interpretation: Yes Interpretation: no consolidation, no effusion, no pneumothorax Impression: No acute disease Electronically Signed by: Electronically signed by Royer Jose MD CT/MRI/US Diagnostic Results CT/MRI/US Diagnostic Results #1: Imaging Test Ordered: Venous plethysmography Impression chronic clot CT/MRI/US Diagnostic Results #2: Imaging Test Ordered: Abdomen and pelvis Impression no surgical pathology Last Vital Signs Date Time Temp Pulse Resp B/P (MAP) Pulse Ox O2 Delivery O2 Flow Rate FiO2 02/08/19 01:20 98.4 84 15 134/83 99 Room Air Status: improved Disposition: HOME, SELF-CARE Condition: Improved Scripts Ciprofloxacin Hcl* (CIPROFLOXACIN HCL*) 500 Mg Tablet 500 MG ORAL Q12H, #20 TAB 0 Refills Prov: Royer Jose MD 02/08/19 Apixaban (ELIQUIS) 5 Mg Tablet 5 MG PO DAILY, #20 TAB 1 Refill Prov: Royer Jose MD 02/08/19 Royer Jose MD February 07, 2019 21:54
[2019-02-07 22:01] LABS: BASOPHILS % (AUTO) 1.5 % (0.0-2.0); EOSINOPHILS % (AUTO) 3.1 % (0.0-3.0); HEMOGLOBIN 12.8 G/DL (14.2-18.0); LYMPHOCYTES % (AUTO) 43.7 % (20.0-45.0); MEAN CORPUSCULAR VOLUME 89 FL (80-99); MONOCYTES % (AUTO) 4.4 % (1.0-10.0); NEUTROPHILS % (AUTO) 47.3 % (45.0-75.0); PLATELET COUNT 231 K/UL (150-450); RED BLOOD COUNT 4.17 M/UL (4.70-6.10); RED CELL DISTRIBUTION WIDTH 12.2 % (11.6-14.8); WHITE BLOOD COUNT 8.2 K/UL (4.8-10.8)
[2019-02-07 22:01] LABS: APPEARANCE,URINE SLIGHTLY CLOUDY; BILIRUBIN, URINE 1+ (NEGATIVE); GLUCOSE, URINE (UA) NEGATIVE (NEGATIVE); KETONES,URINE 1+ (NEGATIVE); LEUKOCYTE ESTERASE ,URINE 2+ (NEGATIVE); NITRITE,URINE NEGATIVE (NEGATIVE); PH,URINE 5 (4.5-8.0); PROTEIN,URINE 1+ (NEGATIVE); UROBILINOGEN,URINE 1 MG/DL (0.0-1.0)
[2019-02-07 22:02] LABS: COLOR,URINE YELLOW
[2019-02-07 22:06] LABS: ANION GAP 8 mmol/L (5-15); BLOOD UREA NITROGEN 22 mg/dL (7-18); CARBON DIOXIDE 27 MMOL/L (21-32); CHLORIDE 105 MMOL/L (98-107); CREATININE 1.5 MG/DL (0.55-1.30); POTASSIUM 4.2 MMOL/L (3.5-5.1); SODIUM 140 MMOL/L (136-145)
[2019-02-07 22:10] LABS: ALANINE AMINOTRANSFERASE 42 U/L (12-78); ALBUMIN 3.8 G/DL (3.4-5.0); ALKALINE PHOSPHATASE 99 U/L (46-116); ASPARTATE AMINO TRANSFERASE 32 U/L (15-37); BILIRUBIN,TOTAL 0.1 MG/DL (0.2-1.0); CREATINE KINASE 237 U/L (26-308)
--- NOTE | 2019-02-07 23:45 | NUR ---
ED Nurse Note: PT CONTINUES TO REST QUIETLY INB ED, MEDS GIVEN FOR PAIN EFFECTIVE, PT PLAYING GAMES ON PHONE AND ASKING FOR FOOD, V/S STABLE, IV SITE PATENT, WILL CONTINNUE TO MONITOR WHILE WAITING FOR IMAGING TO BE DONE.
[2019-02-08] VITALS: BP 134/83
[2019-02-08] MEDS ORDERED: cefTRIAXone 1 GM in NS 55 ML IVPB ONE (00:30)
[2019-02-08] MEDS ORDERED: ELIQUIS5 MG PO (00:55)
[2019-02-08] MEDS ORDERED: CIPROFLOXACIN500 M2 ORAL (00:55)
--- NOTE | 2019-02-08 01:15 | NUR ---
ER DISCHARGE NOTE: Patient is cleared to be discharged per ERMD, pt is aox4, on room air, with stable vital signs. pt was given dc and prescription instructions, pt was able to verbalize understanding, pt id band and iv site removed without complications. pt is able to ambulate with steady gait. pt took all belongings. nad noted during pt d/c to home. pain at 0/10, no cp, no sob or labored breathing.
[2019-02-08 01:20] VITALS: BP 134/83
--- NOTE | 2019-02-08 09:06 | Diagnostic Imaging Report ---
Indication: Abdominal pain Technique: Continuous helical transaxial imaging of the abdomen and pelvis was obtained from the lung bases to the pubic symphysis during intravenous contrast administration. Coronal 2-D reformats were also obtained. Study obtained in a Siemens sensation [address] Automatic Exposure Control was utilized. Total Dose length Product (DLP): 757.[address] Dose Index Volume (CTDIvol): 13.45 mGy Comparison: None Findings: There is a diffuse circumferential wall thickening moderate in degree involving the urinary bladder. Correlate clinically. Aorta is calcified. There is no hydronephrosis. Kidneys enhance normally. The liver, pancreas, spleen and adrenal glands are unremarkable. Gallbladder is unremarkable. Lung bases are clear. There is a moderate degree of stool in the colon which is mildly distended. The appendix is seen and appears normal. There is narrowing of intervertebral discs and accompanying endplate osteophyte formation at L4-5 and L5-S1 especially. Hypertrophied facet joints also demonstrated. IMPRESSION: Suspected cystitis with the circumferential thickening of the bladder wall. Correlate clinically. Mild atherosclerotic disease. Basilar atelectasis Degenerative changes of the lumbar spine The CT scanner at [facility] is accredited by the [employer] and the scans are performed using dose optimization techniques as appropriate to a performed exam including Automatic Exposure control.
--- NOTE | 2019-02-08 11:45 | Diagnostic Imaging Report ---
Indication: Dyspnea Comparison: 11/26/2016 A single view chest radiograph was obtained. Findings: Cardiomediastinal appearance is within normal limits for age. The lungs are clear. Pulmonary vascularity is appropriate. The diaphragmatic contour is smooth and costophrenic angles are sharp. No pleural effusions are identified. The bones are unremarkable. Impression: No acute findings There is a hazy opacity over the left upper chest likely due to overlying soft tissue.
--- NOTE | 2019-02-08 12:09 | Diagnostic Imaging Report ---
Indication: Left lower extremity pain and swelling. Technique: Duplex Doppler imaging performed from the left common femoral vein to the popliteal vein. FINDINGS: There is thrombosis of the left popliteal vein extending into the posterior tibial veins. This is unchanged from the last exam performed 12/10/2018. The superficial femoral and common femoral veins appear widely patent.. IMPRESSION: Thrombosis of the left popliteal vein and posterior tibial/peroneal veins. No change from 12/10/2018. [facility] has communicated the preliminary results to the Emergency Department. Their findings are largely concordant with this report.
== END 2019-02-08 01:25 | disposition home or self-care (01) ==
LOC: EDBD 21:26 → EMR 22:10
DX: R10.9 Unspecified abdominal pain (principal); N39.0 Urinary tract infection, site not specified
CPT/HCPCS: 36415; 71045; 74177; 80053; 81003; 82550; 83690; 84484; 85025; 85610; 85730; 87086; 93971; 96361; 96365; 99284; J0696; Q9967

== ENCOUNTER 2019-02-13 15:55 | Emergency (ER) | payer MEDICAID ==
[~2019-02-13] VITALS: Ht 180.3 cm; Wt 86.2 kg
[~2019-02-13 15:55] MED LIST changes: +CIPROFLOXACIN500 M2 ORAL
[2019-02-13 16:23] VITALS: BP 130/82
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
[2019-02-13] MEDS ORDERED: HYDROcodone/Acetamin 5/325 tab ORAL ONE (16:45)
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
[2019-02-13] MEDS ORDERED: TRAMADOL HCL50 MG ORAL (18:22)
[2019-02-13 18:46] VITALS: BP 127/80
--- NOTE | 2019-02-13 18:47 | NUR ---
ER DISCHARGE NOTE: Patient is cleared to be discharged per ERMD, pt is aox4, on room air, with stable vital signs. pt was given dc and prescription instructions, pt was able to verbalize understanding, pt took all belongings, taxi arrangements done
--- NOTE | 2019-02-14 12:16 | Diagnostic Imaging Report ---
Indication: Right wrist pain Findings: 3 views of the right wrist were obtained. There is evidence of an old ununited fracture of the scaphoid waist. Cystic changes are noted throughout the carpal bones with some irregular articular margins noted. There is an old fracture of the fourth metacarpal. Arthrosis also present involving the radiocarpal joint. Generalized soft tissue swelling demonstrated. IMPRESSION: No acute injury. Old fractures involving the fourth metacarpal and scaphoid. Moderate arthrosis
--- NOTE | 2019-02-14 12:17 | Diagnostic Imaging Report ---
Indications: Left hip pain Findings: Two views of the left hip were obtained. No acute fracture is demonstrated. Alignment of the hip is within normal limits. Soft tissues are unremarkable. Impression: Negative for acute injury.
[2019-02-16] MEDS ORDERED: ELIQUIS5 MG PO (13:03)
== END 2019-02-13 18:45 | disposition home or self-care (01) ==
LOC: EMR 16:40
DX: S63.501A Unspecified sprain of right wrist, initial encounter (principal); S70.02XA Contusion of left hip, initial encounter; V29.9XXA Motorcycle rider (driver) (passenger) injured in unspecified traffic accident, initial encounter; Y92.410 Unspecified street and highway as the place of occurrence of the external cause
CPT/HCPCS: 29125; 73502; 99284